=== PATIENT | female | born 1960 ===

== ENCOUNTER → 2021-03-20 | Outpatient (CLI) | payer OTHER | END | disposition home or self-care (01) | LOC: MAMO-SONO 10:33 | DX: N60.11 Diffuse cystic mastopathy of right breast (principal); N60.12 Diffuse cystic mastopathy of left breast; Z12.31 Encounter for screening mammogram for malignant neoplasm of breast; R10.11 Right upper quadrant pain ==

== ENCOUNTER 2022-03-13 07:55 | Outpatient (CLI) | payer OTHER | END 2022-03-13 08:05 | disposition home or self-care (01) | LOC: MAMO-SONO 07:55 | DX: Z12.31 Encounter for screening mammogram for malignant neoplasm of breast (principal); N60.11 Diffuse cystic mastopathy of right breast; N60.12 Diffuse cystic mastopathy of left breast; R31.29 Other microscopic hematuria ==

== ENCOUNTER 2023-10-29 13:21 | Outpatient (CLI) | payer OTHER | END 2023-10-29 13:32 | disposition home or self-care (01) | LOC: MAMO-SONO 13:21 | PROVIDERS: ATTEND Family Medicine | DX: N60.11 Diffuse cystic mastopathy of right breast (principal); N60.12 Diffuse cystic mastopathy of left breast; Z12.31 Encounter for screening mammogram for malignant neoplasm of breast ==